=== PATIENT | female | born 1975 | race Caucasian/White ===

== ENCOUNTER 2018-05-17 08:38 | Emergency (ER) | payer MEDICAID ==
[~2018-05-17] VITALS: Ht 185.4 cm; Wt 68.2 kg
[2018-05-17 08:59] VITALS: BP 128/81; Ht 185.4 cm; Wt 68.2 kg
[2018-05-17] MEDS ORDERED: NEURONTIN600 MG PO (09:43)
[2018-05-17] MEDS ORDERED: BACLOFEN20 M1 PO (09:43)
[2018-05-17] MEDS ORDERED: PERCOCET 7.5/321 TAB PO (09:44)
[2018-05-17] MEDS ORDERED: REQUIP0.25 MG PO (09:45)
[2018-05-17] MEDS ORDERED: PAMELOR10 MG PO (09:45)
== END 2018-05-17 10:59 | disposition home or self-care (01) ==
LOC: D.ER 08:38
DX: R51 Headache (principal); F17.200 Nicotine dependence, unspecified, uncomplicated

== ENCOUNTER 2018-06-21 02:11 | Emergency (ER) | payer MEDICAID ==
[~2018-06-21] VITALS: Ht 185.4 cm; Wt 76.4 kg
[~2018-06-21 02:11] MED LIST: BACLOFEN20 M1 PO; NEURONTIN600 MG PO; PAMELOR10 MG PO; PERCOCET 7.5/321 TAB PO; REQUIP0.25 MG PO
[2018-06-21 02:22] VITALS: Ht 185.4 cm; Wt 76.4 kg
[2018-06-21] MEDS ORDERED: ZANAFLEX4 MG PO (02:24)
[2018-06-21 03:17] LABS: BASOPHILS 0.2 % (0-2); EOSINOPHILS 2.3 % (0-7); HEMATOCRIT 40.3 % (36.0-48.0); HEMOGLOBIN 13.5 g/dL (12-16); IMMATURE GRANULOCYTES 0.2 % (0-5); LYMPHOCYTES 35.5 % (15-50); MCH 30.3 pg (26.0-34.0); MCHC 33.5 g/dL (31.0-37.0); MCV 90.4 fL (80.0-100.0); MEAN PLATELET VOLUME 10.1 fL (7.4-10.4); MONOCYTES 5.7 % (2-11); NEUTROPHILS 56.1 % (40-80); PLATELET COUNT 233 10x3/uL (130-400); RBC 4.46 10x6/uL (4.00-5.40); RDW 14.6 % (11.5-14.5); WBC 5.7 10x3/uL (4.8-10.8)
[2018-06-21 03:28] LABS: APTT 24.7 SECONDS (22.8-39.4); INR 0.87 (0.85-1.17); PROTIME 11.4 SECONDS (11.6-15.0)
[2018-06-21 03:32] LABS: ALBUMIN 3.6 g/dL (3.4-5.0); ALKALINE PHOSPHATASE 79 U/L (46-116); ALT (SGPT) 15 U/L (10-68); BILIRUBIN - TOTAL 0.29 mg/dL (0.2-1.3); CALC OSMOLALITY 275 mosm/kg (275-300); CALCIUM 9.2 mg/dL (8.5-10.1); CHLORIDE - SERUM 103 mmol/L (98-107); CREATININE - SERUM 0.8 mg/dL (0.6-1.3); GLUCOSE 101 mg/dL (74-106); PROTEIN - SERUM 7.6 g/dL (6.4-8.2); SODIUM 139 mmol/L (136-145); UREA NITROGEN 7 mg/dL (7-18); eGFR NON AFRICAN AMERICAN 83 mL/min (90-120)
[2018-06-21 03:40] LABS: UDS - AMPHET POSITIVE QUAL (NEGATIVE); UDS - BARB NEGATIVE QUAL (NEGATIVE); UDS - BENZO NEGATIVE QUAL (NEGATIVE); UDS - COCAINE NEGATIVE QUAL (NEGATIVE); UDS - OPIATE NEGATIVE QUAL (NEGATIVE); UDS - PCP NEGATIVE QUAL (NEGATIVE); UDS - THC NEGATIVE QUAL (NEGATIVE)
[2018-06-21 03:44] LABS: CKMB 1.2 U/L (0.0-3.6); CREATINE KINASE 68 UL (21-215); MAGNESIUM - SERUM 1.8 mg/dL (1.8-2.4); THYROID STIMULATING HORMONE 1.59 uIU/mL (0.36-3.74); TROPONIN-I < 0.017 ng/mL (0.000-0.060)
[2018-06-21 04:46] VITALS: BP 133/76
== END 2018-06-21 04:53 | disposition home or self-care (01) ==
LOC: D.ER 02:11
PROVIDERS: Family Medicine
DX: R51 Headache (principal); M54.2 Cervicalgia; F17.200 Nicotine dependence, unspecified, uncomplicated